=== PATIENT | male | born 1960 | race Caucasian/White ===

== ENCOUNTER 2021-01-30 10:47 | Emergency (ER) | payer OTHER, SELFPAY ==
--- NOTE | ~2021-01-30 | XR_ITS ---
EXAMINATION: XR shoulder LT min 2V DATE: 01/30/2021 12:11 INDICATION: Left shoulder pain post fall forward 2 weeks prior TECHNIQUE: AP internally and externally rotated, AP oblique externally rotated and transscapular Y vi ews of the left shoulder were obtained. COMPARISON: None FINDINGS: Alignment is normal. No acute fracture. There is lucency consistent with loosening surrounding the th reads of a lag screw at the anterior left glenoid. There is an ununited bone fragment near the head o f the screw which is separate by a few millimeter from the glenoid rim. Appearance suggests possible Latarjet procedure with harvest of the coracoid bone fragment for an old Bankhart lesion repair. Mild to moderate left glenohumeral osteoarthritis and mild acromioclavicular osteoarthritis. Small calcif ic focus near the middle facet of the greater tuberosity consistent with infraspinatus calcific tendi nitis. Subtle calcific debris versus labral chondrocalcinosis along the inferior rim of the glenoid. Visualized portions of the lungs are clear. IMPRESSION: 1. No acute osseous abnormality. 2. Postoperative changes at the anterior left glenoid suggesting a failed Latarjet procedure for an o ld Bankart lesion repair. 3. Mild to moderate glenohumeral and mild acromioclavicular osteoarthritis. 4. Infraspinatus calcific tendinitis. Reviewed, dictated and finalized at location B. OL CAFETERIA COOK HEAD IMPRESSION: 1. No acute osseous abnormality. 2. Postoperative changes at the anterior left glenoid suggesting a failed Latar jet procedure for an old Bankart lesion repair. 3. Mild to moderate glenohumeral and mild acromioclavicular osteoarthritis. 4. Infraspinatus calcific tendinitis.
--- NOTE | ~2021-01-30 | XR_ITS ---
EXAMINATION: XR shoulder RT min 2V DATE: 01/30/2021 12:14 INDICATION: Right shoulder pain. Injury. TECHNIQUE: 4 views of right shoulder were obtained. COMPARISON: None. FINDINGS: Bone alignment is normal. No fracture. There is mild osteoarthritis of glenohumeral joint a nd moderate osteoarthritis of acromioclavicular joint. IMPRESSION: 1. Polyarticular osteoarthritis. Reviewed, dictated and finalized at location A. ICE ENGINE REPAIRER
--- NOTE | ~2021-01-30 | XR_ITS ---
EXAMINATION: XR humerus RT DATE: 01/30/2021 12:14 INDICATION: Right shoulder injury and pain. TECHNIQUE: 2 views of right humerus on 3 radiographs were obtained. COMPARISON: None. FINDINGS: Bone alignment is normal. No fracture. There is mild osteoarthritis of glenohumeral joint a nd moderate osteoarthritis of acromioclavicular joint. There are enthesophytes at the medial and late ral humeral epicondyles. IMPRESSION: 1. Polyarticular osteoarthritis. Reviewed, dictated and finalized at location A. R SWEEPER OPERATOR
--- NOTE | ~2021-01-30 | XR_ITS ---
EXAMINATION: XR_CERV2-3V_CR DATE: 01/30/2021 12:15 INDICATION: Neck injury. TECHNIQUE: 5 views of cervical spine were obtained. COMPARISON: None. FINDINGS: Bone alignment is normal. Vertebral body heights are normal. There is mildly decreased disc height at C4-C5 and C5-C6 and moderately decreased disc height at C6-C7. At C6-C7, there is severe b ilateral uncovertebral joint osteoarthritis. There is multilevel mild facet joint osteoarthritis. The re is mild central canal stenosis at C6-C7. No prevertebral soft tissue swelling. IMPRESSION: 1. Moderate cervical spondylosis. Reviewed, dictated and finalized at location A. AL OPERATOR LINGUIST
--- NOTE | ~2021-01-30 | XR_ITS ---
EXAMINATION: XR wrist RT min 3V DATE: 01/30/2021 12:15 INDICATION: Right wrist pain. Fall. TECHNIQUE: 4 views of right wrist were obtained. COMPARISON: None. FINDINGS: Bone alignment is normal. No fracture. There is mild osteoarthritis of triscaphe joint and first carpometacarpal joint. IMPRESSION: 1. Mild polyarticular osteoarthritis. Reviewed, dictated and finalized at location A. OMER SOLUTIONS REPRESENTATIVE
[2021-01-30 10:56] VITALS: BP 129/68; PULSE 73; RESP 20; TEMP 36.3; O2SAT 100
--- NOTE | 2021-01-30 11:16 | ED.GENADULT ---
HPI - General Adult General Chief complaint: Fall Stated complaint: shoulders and neck injury Source: patient Mode of arrival: ambulatory Limitations: no limitations History of Present Illness HPI narrative: 61 y/o male. PMHx: Seizure Dx, TIA, HTN, HLD, Neuropathy, Chronic pain Sx. Presents to [facility] this AM with acute complaints of bilateral shoulder pain and posterior neck pain S/P a mechanical fall 2 weeks ago. Client notes a mechanical fall while walking his trashcan through his yard, 'tripped', and landed forward on upper extremities. He states he used his arms to catch himself. Client denies prodromal symptoms. No aura, focal weakness, dizziness, chest pain, dyspnea. He tells me he has not sought out medical evaluation until today, because he had 'been doing okay'. He is on daily Plavix for neurological history as aforementioned. No closed head injury or LOC. He reports no adverse bleeding or wounds. No loss of upper extremity control or paraesthesia. His pain has become more severe and with 'stiffness' since his injury. Client is without additional acute c/o illness upon PE. Related Data Home Medications Medication Instructions Recorded Confirmed amlodipine 5 mg PO DAILY 01/30/21 01/30/21 atorvastatin 40 mg PO DAILY 01/30/21 01/30/21 clopidogrel [Plavix] 75 mg PO DAILY 01/30/21 01/30/21 divalproex 500 mg PO Q12H 01/30/21 01/30/21 gabapentin 300 mg PO TID 01/30/21 01/30/21 hydrocodone-acetaminophen 1 tablet PO Q8H PRN 01/30/21 01/30/21 ibuprofen 800 mg PO TID PRN 01/30/21 01/30/21 losartan-hydrochlorothiazide 1 tablet PO DAILY 01/30/21 01/30/21 pantoprazole 40 mg PO QAM 01/30/21 01/30/21 venlafaxine 75 mg PO DAILY 01/30/21 01/30/21 Allergies Allergy/AdvReac Type Severity Reaction Status Date / Time codeine AdvReac Nausea Verified 01/30/21 11:17 Review of Systems Review of Systems: CONSTITUTIONAL: Denies fever, chills, sweats. EYES: Denies visual changes, redness, discharge. ENT: Denies rhinorrhea, congestion, sore throat, otalgia. CARDIOVASCULAR: Denies chest pain, palpitations, edema. RESPIRATORY: Denies dyspnea, wheezing, cough GASTROINTESTINAL: Denies abdominal pain, nausea, vomiting, diarrhea. GENITOURINARY: Denies dysuria, hematuria, abnormal discharge SKIN: Denies rash or itching. MUSCULOSKELETAL: Denies acute back pain. Positive Bilateral shoulder and cervical joint pain. No myalgia. NEUROLOGIC: Denies numbness, or focal weakness. PSYCHIATRIC: Denies anxiety or depression. All systems reviewed & are unremarkable except as noted in HPI and below Exam Narrative: GENERAL: This is a well-nourished, well-developed adult, in no apparent distress. HEAD: normocephalic, atraumatic. EYES: PERRL. Sclera clear/white. EARS: External ears normal, auditory canals clear and without drainage, TMs normal. NOSE: External nose normal. No Rhinorrhea, no obstruction, nares patent. THROAT: Mucous membranes moist, posterior pharynx clear. No exudates. NECK: Neck supple, non-tender without lymphadenopathy, masses or thyromegaly. No midline cervical spinal tenderness and full ROM of cervical spine. Reproducible bilateral trapezius muscle spasm. CARDIOVASCULAR: Regular rate and rhythm without murmurs, gallops, or rubs. Pulses intact, strong, BUE. RESPIRATORY: Clear to auscultation. Breath sounds equal bilaterally. No wheezes, rales, or rhonchi. No chest wall deficits. GASTROINTESTINAL: Abdomen soft, non-tender, nondistended. Bowel sounds are active. No guarding. SKIN: warm, intact with no suspicious lesions or rash, good texture and turgor. Mild residual and healing bruising to RT upper arm/humerus. No open wounds. NEURO: Alert, active, and age appropriate. No focal neurologic deficits. Good sensation and discrimination BUE. No deficits. EXTREMITIES: With Bilateral glenohumeral joint tenderness, no obvious deformity. RT shoulder ROM is limited secondary to pain, but good strength. LT shoulder exhibits full RO
== END 2021-01-30 12:40 | disposition home or self-care (01) ==
PROVIDERS: Emergency Provider Nurse Practitioner Adult Health; PCP Internal Medicine
DX: S49.91XA Unspecified injury of right shoulder and upper arm, initial encounter (principal); M54.2 Cervicalgia; I10 Essential (primary) hypertension; E78.5 Hyperlipidemia, unspecified; Z86.73 Personal history of transient ischemic attack (TIA), and cerebral infarction without residual deficits; Z79.891 Long term (current) use of opiate analgesic; Z79.1 Long term (current) use of non-steroidal anti-inflammatories (NSAID); Z79.02 Long term (current) use of antithrombotics/antiplatelets; W01.0XXA Fall on same level from slipping, tripping and stumbling without subsequent striking against object, initial encounter; Y92.007 Garden or yard of unspecified non-institutional (private) residence as the place of occurrence of the external cause
CPT/HCPCS: 72040; 73030; 73060; 73110; 99214; G0463

== ENCOUNTER 2021-12-03 13:10 | Emergency (ER) | payer OTHER, SELFPAY ==
--- NOTE | ~2021-12-03 | XR_ITS ---
XR foot RT min 3V 12/03/2021 13:49 Indication: Right foot pain and swelling Procedure: 4 views right foot Comparison: No prior studies for comparison. Findings: There is a radiopaque foreign body with a linear appearance in the plantar soft tissues ove rlying the fourth proximal phalanx. Mild osteoarthritis of the first MTP and IP joints. Lisfranc join t intact. No fracture or traumatic malalignment. Impression: 1: Linear radiopaque foreign body involving the plantar soft tissues overlying the fourth proximal ph alanx. Reviewed, dictated and finalized at location A. Impression: 1: Linear radiopaque foreign body involving the plantar soft tissues overlying the fourth proximal phalanx.
[2021-12-03 13:18] VITALS: BP 115/55; PULSE 52; RESP 14; TEMP 37.1; O2SAT 100
[2021-12-03 13:31] VITALS: BP 115/55; PULSE 52; RESP 14; TEMP 37.1; O2SAT 100
--- NOTE | 2021-12-03 13:57 | ED.SKABFB ---
HPI - Skin/Abscess/Foreign Bdy General Chief complaint: Skin/Abscess/Foreign Body Stated complaint: small black spot on bottom right foot Time Seen by Provider: 12/03/21 13:57 Source: patient, RN notes reviewed and old records reviewed Mode of arrival: ambulatory Limitations: no limitations History of Present Illness HPI narrative: 61-year-old male accompanied by with complaints of pain and right foot swelling with small black puncture wound to the bottom of his right foot which he noticed on . Patient reports on Saturday he was working in his pool and the next day he noticed pain swelling to right foot with swelling up to mid lower leg. Patient does have small black looking puncture wound to bottom of right foot on ball of foot, patient concerned of foreign body in foot does have neuropathy to his feet and legs. Patient reports that he has been keeping his feet elevated and swelling has decreased. Patient is on daily Plavix. MD complaint: foreign body (right foot.) Tetanus up to date: yes Severity scale (1-10): 4 Related Data Home Medications Medication Instructions Recorded Confirmed amlodipine 5 mg tablet 5 mg PO DAILY 01/30/21 12/03/21 atorvastatin 40 mg tablet 40 mg PO DAILY 01/30/21 12/03/21 clopidogrel 75 mg tablet (Plavix) 75 mg PO DAILY 01/30/21 12/03/21 divalproex 500 mg tablet,delayed 500 mg PO Q12H 01/30/21 12/03/21 release gabapentin 300 mg capsule 300 mg PO TID 01/30/21 12/03/21 hydrocodone 10 mg-acetaminophen 2 tablet PO Q8H PRN Pain 01/30/21 12/03/21 325 mg tablet losartan 100 1 tablet PO DAILY 01/30/21 12/03/21 mg-hydrochlorothiazide 25 mg tablet pantoprazole 40 mg tablet,delayed 40 mg PO QAM 01/30/21 12/03/21 release venlafaxine 75 mg tablet,extended 37.5 mg PO DAILY 01/30/21 12/03/21 release 24 hr Allergies Allergy/AdvReac Type Severity Reaction Status Date / Time codeine AdvReac Nausea Verified 12/03/21 13:28 Review of Systems Review of Systems: CONSTITUTIONAL: Denies fever, chills, or sweats. EYES: Denies visual changes, redness, or discharge. ENT: Denies rhinorrhea, congestion, sore throat, or otalgia. CARDIOVASCULAR: Denies chest pain, palpitations, or edema. RESPIRATORY: Denies cough or dyspnea. GASTROINTESTINAL: Denies abdominal pain, nausea, vomiting, or diarrhea. GENITOURINARY: Denies dysuria or hematuria. SKIN: Denies rash or itching.small black puncture suzanne to bottom of right foot ball of foot MUSCULOSKELETAL: Denies back pain, chronic leg pain or myalgia, swelling and pain to right foot. NEUROLOGIC: Denies headache, numbness, or weakness. PSYCHIATRIC: Positive history anxiety or depression. All systems reviewed & are unremarkable except as noted in HPI and below PMFSH Past Medical History Medical History (Updated 12/06/21 @ 08:15 by Mary Jane Ly NP) Chronic leg pain Elevated cholesterol Hx of migraines Hypertension Neuropathy Surgical History Surgical History (Updated 12/07/21 @ 07:17 by Mary Jane Ly NP) H/O inguinal hernia repair left H/O repair of rotator cuff bilateral History of facial surgery reconstruction of bilateral orbits and cheeks Social History Social History (Updated 12/07/21 @ 07:14 by Mary Jane Ly NP) Smoking status: Never smoker Alcohol intake: unknown Substance use: current Substance use type: opiates Last use: takes opiates daily for pain control Living arrangements: with family Gender identity (if verbalized by the patient): Male Comments At time of signature agree with nursing documentation of past medical,surgical,social and family history. There is no relevant family history pertinent to presenting complaint. Exam Narrative: GENERAL: Well-appearing, well-nourished, and in no acute distress. HEAD: Normocephalic, atraumatic. NECK: Supple.no lymphadenopathy CHEST: Clear to auscultation. No respiratory distress.SAO2 100% on room air HEART: Regular rate and rhythm. No murmur heard. Kamala
== END 2021-12-03 14:32 | disposition home or self-care (01) ==
PROVIDERS: Emergency Provider Registered Nurse
DX: S90.851A Superficial foreign body, right foot, initial encounter (principal); X58.XXXA Exposure to other specified factors, initial encounter; E78.00 Pure hypercholesterolemia, unspecified; I10 Essential (primary) hypertension; G62.9 Polyneuropathy, unspecified; Z79.01 Long term (current) use of anticoagulants
CPT/HCPCS: 73630; 99213; G0463

== ENCOUNTER 2024-11-09 13:12 | Emergency (ER) | payer MEDICARE, SELFPAY ==
--- OUTSIDE RECORDS SUMMARY | 2023-11-27 06:00 | XMS_ITS | Continuity of Care Document ---
Author Organization [facility] Address [address] [facility] [address] [place] [address] [place] [id number] Phone Care Team Providers Care Twisting Operator Name Role Phone Rhoda Stockton OD Unavailable Unavailable Allergies, Adverse Reactions, Alerts Substance Reaction Status Criticality codeine Active No Information Medications Medication Instructions Dosage Effective Dates (start - stop) Status Comments prednisolone acetate 1 % eye drops,suspension Instill 1 drop into operated eye 4 times a day for 2 weeks, then 2 times a day for 2 weeks; to begin after being seen in the office for first post op visit. - Active clopidogrel 75 mg tablet take 1 tablet by oral route every day 75 MG - Active losartan 25 mg tablet take 1 tablet by oral route every day 25 MG - Active venlafaxine 37.5 mg tablet take 1 tablet by oral route every day with food 37.5 MG - Active Kapspargo Sprinkle 100 mg capsule,extended release take 1 capsule by oral route every day 100 MG - Active atorvastatin 40 mg tablet take 1 tablet by oral route every day 40 MG - Active amlodipine 5 mg tablet take 1 tablet by oral route every day 5 MG - Active gabapentin ER 300 mg tablet,extended release 24 hr take 1 tablet by oral route once on day 1 of treatment 300 MG - Active pantoprazole 40 mg tablet,delayed release take 1 tablet by oral route every 2 days 40 MG - Active Allergy and Congestion Relief 5 mg-120 mg tablet,extend release 12 hr take 1 tablet by oral route every 12 hours 1.00 tablet - Active Magnesium Fizz-Plus 500 mg-300 mg/6.1 gram oral effervescent powder - Active Daily Multi-Vitamin tablet take 1 tablet by oral route every day 1 tablet - Active Procedures Procedure Date No Charge Refraction Post-op Follow-up Visit Post-op Follow-up Visit Remove Cataract, Insert Lens No Charge Refraction Post-op Follow-up Visit Post-op Follow-up Visit Remove Cataract, Insert Lens Fundus Photography W/ Report IOLMaster No Charge Refraction Corneal Topography No Charge GDX Retina Office/outpatient Visit, Est IOLMaster No Charge Optomap Fundus Photos 024 No Charge Refraction Eye Exam, New Patient Advance Directives Directive Yes / No Effective Date File Name No Information Encounters Encounter Description Practice Location Reason(s) For Visit Diagnoses Date Provider Providers Copied on Encounter [facility], [facility] [address], [place], [id number], tel:[phone] SEC Doe GARCIA Professional Post-Op (chief complaint) Post op visit Nov-0 4 Mahin Duong. [address] [place] [address] [facility], [address], [place], [place], [address], [place]. tel:[phone] Referring Provider: Rhoda Mccollum, [facility] [employer] [facility] [address], [place], [address] . tel:[phone] [facility], [facility] [employer] [facility] [address], [place], [place], [address], tel:[phone] SEC Doe GARCIA Professional 1 Day CE/IOL PO (chief complaint) Post op visit Oct- 4 Mahin Duong. [facility] [employer], [address], [place], [place], [address], . tel:[phone] Referring Provider: Rhoda Mccollum, [facility] [employer] [address], [place], [address] . tel:[phone] [facility], [address] [place] [address] [address], [place], [place], [address], [place] tel:[phone] [facility] No Information 4 Viji Velazquez. [address] [place] [address] [employer], [address], [place], [place], [address], [place]. tel:[phone] Referring Provider: Rhoda Stockton OD L, [address] [place] [address] [facility] [address], [place], [address] . tel:[phone] [facility], [address] [place] [address] [address], [place], [place], [id number], tel:[phone] SEC Doe [place] Professional Post-Op (chief complaint) Post op visit 4 Mahin Dunog. [address] [place] [address] [employer], [address], [place], [place], [address], [place]. tel:[phone] Referring Provider: Rhoda Stockton OD L, [address] [place] [address] [facility] [address], [place], [address] . tel:[phone] [facility], [address], [place], [place], [id number], [place] tel:[phone] SEC [place] Professional 1 Day CE/IOL PO (chief complaint) Post op visit 4 Mahin Duong. [address] [place] [address] [employer], [address], [place], [place], [address], [place]. tel:[phone] Referring Provider: Rhoda Stockton OD L, [address] [place] [address] [facility] [address], [place], [address] . tel:[phone] [facility], [address] [place] [address] [address], [place], [place], [address], [place] tel:[phone] [facility] No Information 4 Viji Velazquez. [facility] [employer], [address], [place], [place], [address], [place]. tel:[phone] Referring Provider: Rhoda Stockton OD L, [facility] [employer] [address], [place], [address] . tel:[phone] [facility], [address] [place], [place] [address] [address], [place], [place], [address], [place] tel:[phone] SEC [place] No Information 4 Viji Velazquez. [facility] [employer], [address], [place], [place], [address], [place]. tel:[phone] Office/outpa [place]ient Visit, [facility], [facility] [employer] [address], [place], [place], [address], [place] tel:[phone] SEC [place] Professional Cataract evaluation (chief complaint) Combined forms of age-related cataract, bilateralGlau coma suspect low risk, bilateral 4 Viji Velazquez. [facility] [employer], [address], [place], [place], [address], [place]. tel:[phone] Referring Provider: Rhoda Stockton OD L, [facility] [employer] [address], [place], [address] . tel:[phone] [facility], [facility] [address], [place], [place], [address], [place] tel:[phone] SEC [place] Professional Blurry/decr eased vision (chief complaint) Combined forms of age-related cataract, bilateralGlau coma suspect low risk, bilateral Apr- 4 Mahin Duong. [facility] [employer], [address], [place], [place], [address], [place]. tel:[phone] Referring Provider: Rhoda Stockton OD L, [facility] [employer] [address], [place], [address] . tel:[phone] [facility], [address], [place], [place], [address], [place] tel:[phone] SEC Neymar [place] No Information Mahin OD Rhoda. [address], [address], [place], [place], [address], [place]. tel:[phone] Family History Family Member Type Diagnosis Age At Onset Problem Family history of Diabetes m amadeo Payers Payer name Insurance type Covered libertarian ID Authoriza tion(s) No Information Social History Type Description Quantity Date Captured Comments Alcohol Use Details No Caffeine Use Details Tobacco Use Status Current non-smoker Smoking Status Never smoker Non-Smoking Tobacco Use Details : No Details Available : No Details Available Sex Male Chief Complaint And Reason For Visit From encounter dated '11/27/2023 11:00'. Post-Op (chief complaint). Description: The 63 year old patient presents for evaluation of 2 week CE/IOL STD Post-Op in the right eye. Pt reports good compliance with PO gtts. Pt states vision is doing great. Pt states he has not been having any issues. Reason For Referral Reason For Referral No Information Plan Of Treatment Date Type Action Status Patient Education Cataracts: Care Instruc tions completed History Of Present Illness Encounter Date Complaint History Of Prese nt Illness Post-Op The 63 year old patient presents for evaluation of 2 week CE/IOL STD Post-Op in the right eye. Pt reports good compliance with PO gtts. Pt states vision is doing great. Pt states he has not been having any issues. 1 Day CE/IOL PO The 63 year old patient presents for evaluation of 1 Day CE/IOL PO in the right eye. Pt states no pain or discomfort in OD and pt states that vision seems a little better and definitely seems brighter than before. Post-Op The 63 year old patient presents for a 2 week post op CE OS. Patient is using his drop as directed. Patient states OS is doing good. Patient wishes to proceed with CE OD. Patient is bothered by glare around lights at night. Patient has a hard time reading fine print and a hard time watching TV. 1 Day CE/IOL PO The 63 year old patient presents for evaluation of 1 Day CE/IOL PO in the left eye. Pt states no pain or discomfort in OS and pt states that vision in OS is still blurry but does seem brighter than before. Cataract evaluation The 63 year old patient presents for evaluation of Cataract evaluation in the right eye and left eye. Pt referred by Dr. Stockton for cataracts ou. Pt states for past 2 years his vision has become more cloudy. Pt. states he has trouble reading small print, seeing print on tv. Pt. also has trouble with glare at nighttime. Blurry/decreased vision The 63 y ear old patient presents for evaluation of Blurry/decreased vision in the right eye and left eye. Pt states that over that past year they noticed that OU has seem to be getting worse vision for DV and NV pt states that vision seems to be cloudy. Functional Status Date Functional Assessmen t No Information Instructions Date Instruction Additional Infor junior Impression/Plan Impression/Plan Impression/Plan Impression/Plan Impression/Plan Impression/Plan Assessments Type Assessment Date assessment Post op visit Patient Care Teams Name Effective Dates (start - stop) Status Members No Information
--- OUTSIDE RECORDS SUMMARY | 2023-11-27 06:00 | XMS_ITS | Continuity of Care Document ---
Author Organization [employer] [facility] [place] Address [address] [facility] utigavin [place] [address] [place] [address] Phone Care Team Providers Care Nuclear Plant Technical Advisor Name Role Phone Rhoda Stockton OD Unavailable [...] Diagnoses Date Provider Providers Copied on Encounter [facility] [employer] [facility], [facility] [place] [facility] [address], [place], [address], tel:[phone] SEC Doe GARCIA Professional Post-Op (chief complaint) Post op visit Nov-0 4 Mahin Duong. [address] [place] [address] [employer] [facility], [address], [place], [place], [address], [place]. tel:[phone] Referring Provider: Rhoda Mccollum, [facility] [employer] [facility] [address], [place], [address] . tel:[phone] [facility] [employer] [facility], [facility] [employer] [facility] [address], [place], [place], [address], tel:[phone] SEC Doe GARCIA Professional 1 Day CE/IOL PO (chief complaint) Post op visit Oct- 4 Mahin Duong. [facility] [employer], [address], [place], [place], [address], . tel:[phone] Referring Provider: Rhoda Mccollum, [facility] [employer] [address], [place], [address] . tel:[phone] [facility] [place], [address] [place] [address] [address], [place], [place], [address], [place] tel:[phone] [facility] No Information 4 Viji Velazquez. [address] [place] [address] [employer], [address], [place], [place], [address], [place]. tel:[phone] Referring Provider: Rhoda Stockton OD L, [address] [place] [address] [employer] [facility] [address], [place], [address] . tel:[phone] [facility], [address] [place] [address] [address], [place], [place], [address], tel:[phone] SEC Doe [place] Professional Post-Op (chief complaint) Post op visit 4 Mahin Duong. [address] [place] [address] [employer], [address], [place], [place], [address], [place]. tel:[phone] Referring Provider: Rhoda Stockton OD L, [address] [place] [address] [employer] [facility] [address], [place], [address] . tel:[phone] [facility], [address], [place], [place], [address], [place] tel:[phone] SEC [place] Professional 1 Day CE/IOL PO (chief complaint) Post op visit 4 Mahin Duong. [address] [place] [address] [employer], [address], [place], [place], [address], [place]. tel:[phone] Referring Provider: Rhoda Stockton OD L, [address] [place] [address] [employer] [facility] [address], [place], [address] . tel:[phone] [facility] [place], [address] [place] [address] [address], [place], [place], [address], [place] tel:[phone] [facility] No Information 4 Viji Velazquez. [facility] [employer], [address], [place], [place], [address], [place]. tel:[phone] Referring Provider: Rhoda Stockton OD L, [facility] [employer] [address], [place], [address] . tel:[phone] [facility], [address] [place], [place] [address] [address], [place], [place], [address], [place] tel:[phone] SEC [place] No Information 4 Viji Velazquez. [facility] [employer], [address], [place], [place], [address], [place]. tel:[phone] Office/outpa tient Visit, [facility], [facility] [employer] [address], [place], [place], [address], [place] tel:[phone] SEC [place] Professional Cataract evaluation (chief complaint) Combined forms of age-related cataract, bilateralGlau coma suspect low risk, bilateral 4 Viji Velazquez. [facility] [employer], [address], [place], [place], [address], [place]. tel:[phone] Referring Provider: Rhoda Stockton OD L, [facility] [employer] [address], [place], [address] . tel:[phone] [facility], [facility] [employer] [facility] [address], [place], [place], [address], [place] tel:[phone] SEC Doe [place] Professional Blurry/decr eased vision (chief complaint) Combined forms of age-related cataract, bilateralGlau coma suspect low risk, bilateral Apr- 4 Mahin Duong. [facility] [employer], [address], [place], [place], [address], [place]. tel:[phone] Referring Provider: Rhoda Stockton OD L, [facility] [employer] [address], [place], [address] . tel:[phone] [facility], [address] [address], [place], [place], [address], [place] tel:[phone] SEC Neymra [place] No Information Mahin OD Rhoda. [address], [address], [place], [place], [address], [place]. tel:[phone] Family History Family Member Type Diagnosis Age At Onset Problem Family history of Diabetes m amadeo Payers Payer name Insurance type Covered democrat ID Authoriza tion(s) No Information Social History [...]
--- NOTE | ~2024-11-09 | XR_ITS ---
EXAMINATION: XR foot RT min 3V, 11/09/2024 13:20 CDT HISTORY: pain COMPARISON: No comparisons available. Findings: No acute fracture or malalignment. No significant degenerative changes. Soft tissues unremarkable. Impression: No acute fracture or malalignment. Reviewed, dictated and finalized at location A. Impression: No acute fracture or malalignment.
[2024-11-09 13:27] VITALS: BP 125/75; PULSE 84; RESP 16; TEMP 36.6; O2SAT 98
--- NOTE | 2024-11-09 13:38 | ED.LOWEXIN ---
HPI - Extremity Injury (Lower) General Chief Complaint: Extremity Injury, Lower Stated Complaint: right foot injury Source: patient Mode of arrival: ambulatory Limitations: no limitations History of Present Illness HPI Narrative: 64 y/o male presented for c/o right foot pain after injury 2 days ago. Says he walked into a baby gate door. Now has bruising and swelling to the top of the foot. Says he cannot tolerate walking on it for the 2 days. Related Data Home Medications ?Medication ?Instructions ?Recorded ?Confirmed ?Last Taken ?Type amlodipine 5 mg tablet 5 mg PO DAILY 01/30/21 05/24/23 Unknown History atorvastatin 40 mg tablet 40 mg PO DAILY 01/30/21 05/24/23 Unknown History gabapentin 300 mg capsule 900 mg PO TID 01/30/21 05/24/23 Unknown History losartan 100 1 tablet PO DAILY 01/30/21 05/24/23 Unknown History mg-hydrochlorothiazide 25 mg tablet pantoprazole 40 mg tablet,delayed 40 mg PO DAILY 01/30/21 05/24/23 Unknown History release acetaminophen 325 mg tablet 975 mg PO Q6H PRN Pain 05/24/23 05/24/23 Unknown History cholecalciferol (vitamin D3) 25 2,000 unit PO DAILY 05/24/23 05/24/23 Unknown History mcg (1,000 unit) tablet cyclobenzaprine 10 mg tablet 10 mg PO TID 05/24/23 05/24/23 Unknown History metoprolol succinate 100 mg 100 mg PO DAILY 05/24/23 05/24/23 Unknown History tablet,extended release 24 hr sennosides 8.6 mg-docusate sodium 1 tablet PO DAILY 05/24/23 05/24/23 Unknown History 50 mg tablet venlafaxine 37.5 mg 37.5 mg PO DAILY 05/24/23 05/24/23 Unknown History tablet,extended release 24 hr Allergies Allergy/AdvReac Type Severity Reaction Status Date / Time codeine AdvReac Nausea Verified 12/03/21 13:28 Review of Systems Review of Systems: CONSTITUTIONAL: Denies body aches, fever, chills EYES: Denies visual changes ENT: Denies rhinorrhea, congestion CARDIOVASCULAR: Denies chest pain, palpitations, or edema. RESPIRATORY: Denies cough or dyspnea. SKIN: Denies rash, itching, or wounds. MUSCULOSKELETAL: reports right foot pain NEUROLOGIC: Denies headache All systems reviewed & are unremarkable except as noted in HPI and below PMFSH Past Medical History Medical History Cervical disc disorder with myelopathy, cervicothoracic region signal change C67 surgery due to cervical stenosis with myelopathy with disc disorder AND hematoma Chronic leg pain Elevated cholesterol History of CVA (cerebrovascular accident) without residual deficits 2017 presented with left ataxia weakness slurred speech MOPAP sp tPA given DAPt noncompliant with plavix follow up Dr. Morse 12/2017 Hx of migraines used depakote, dc due to thrombocytopenia Hypertension Lumbar spinal stenosis Neuropathy per neurology sensorimotor Nontraumatic epidural hematoma noted at time of surgery Sensory motor neuropathy [address] 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 Thrombocytopenia noted previously requiring transfusions Surgical History Surgical History H/O inguinal hernia repair left H/O repair of rotator cuff bilateral History of facial surgery reconstruction of bilateral orbits and cheeks History of reverse total replacement of right shoulder joint Hx of excision of lamina of cervical vertebra for decompression of spinal cord R C6-T1 hemilaminotomy/laminectomy for central decompression bilateral laminectomy C4/5 with hematoma evacuation Social History Social History Smoking status: Unknown if ever smoked Alcohol intake: former Substance use: current Substance use type: marijuana Last use: takes opiates daily for pain control Do You Feel Safe in your Home?: Yes Lack of Transportation: No Lack of Food: Never True Current Housing: I Have Housing Concerned About Future Housing: No Difficulty Paying Gas/Electric Bills: No Difficulty Paying for Meds: No Currently Unemployed: No Education: Grade School Difficulty w/ Childcare or Family Care: No Living arrangements: with family Gender identity (if verbalized by the patient): Male Spiritual care concerns: Yes (non denominatinal) Comments At time of signature, I have reviewed and agree with nursing past medical, surgical, social and family history unless otherwise noted. Please see nursing chart for further information. There is no relevant family history pertinent to the presenting complaint Exam Narrative: GENERAL: Well-appearing CHEST: Speaks in full sentences. No respiratory distress. HEART: Regular rate and rhythm. Normal and equal peripheral pulses. EXTREMITIES: Right dorsal foot with bruising and superficial abrasion noted. CMS intact. endorses pain with movement. pulse palpable and equal bilaterally, skin warm, dry, pink. Capillary refill less than 3 seconds. SKIN: Warm, dry, no rash. NEURO: Alert and oriented x3. PSYCH: Normal mood and affect Course Course Emergency Course: Patient is aware of diagnosis, understands and agrees to treatment plan. Anticipatory guidance given. Patient agrees to follow-up as directed and is aware of reasons to seek care at the emergency department. Portions of this record may have been created with voice recognition software Level of Care: Express Care Visit Vital Signs Vital signs: Vital Signs Temperature 97.9 F 11/09/24 13:27 Pulse Rate 84 11/09/24 13:27 Respiratory Rate 16 11/09/24 13:27 Blood Pressure 125/75 11/09/24 13:27 Pulse Oximetry 98 11/09/24 13:27 Oxygen Delivery Room Air 11/09/24 13:27 Temperature 97.9 F 11/09/24 13:27 Pulse Rate 84 11/09/24 13:27 Respiratory Rate 16 11/09/24 13:27 Blood Pressure 125/75 11/09/24 13:27 Pulse Oximetry 98 11/09/24 13:27 Oxygen Delivery Room Air 11/09/24 13:27 Reviewed MDM - Extremity Injury (Lower) MDM Narrative Medical decision making narrative: Discussed physical exam findings And x-ray. Consistent with right foot contusion with superficial abrasion, luciano wrap applied. Advised supportive measures and signs/symptoms to go to the ER. Pt is appropriate for outpt treatment and f/u. Differential Diagnosis Differential diagnosis: Likely ankle sprain and strain and other (foot fracture, contusion, sprain, abrasion) Imaging Data Radiologist's impression: Patient: Abimael Stringer : 1960 MR#: [id number] Age: 64 Acct:[id number] Loc: [facility] ADM Date: 11/09/24Attending Dr: EXAMINATION: XR foot RT min 3V, 11/09/2024 13:20 CDT HISTORY: pain COMPARISON: No comparisons available. Findings: No acute fracture or malalignment. No significant degenerative changes. Soft tissues unremarkable. Impression: No acute fracture or malalignment. Discharge Plan Discharge Clinical Impression: Contusion of foot Patient Disposition: Home Condition: Stable Instructions: Antibiotic Form, Contusion in Adults (ED) Additional Instructions: Rest and elevate the right leg; bear weight as tolerated Apply ice 15-20 minute intervals several times a day Keep it wrapped with LUCIANO as needed Motrin 600mg alternate with Tylenol 1000mg every 8 hours as needed Follow up with your primary care provider Go to the ER for worsening symptoms or concerns Patient Language: Nigerian Prescriptions: No Action atorvastatin 40 mg Tablet 40 mg PO DAILY amlodipine 5 mg Tablet 5 mg PO DAILY losartan-hydrochlorothiazide 100-25 mg Tablet 1 tablet PO DAILY Rx Instructions: HELD IN HOSPITAL DUE TO NORMOTENSIVE BPS pantoprazole 40 mg Tablet,Delayed Release (Dr/Ec) 40 mg PO DAILY gabapentin 300 mg Capsule 900 mg PO TID cyclobenzaprine 10 mg Tablet 10 mg PO TID acetaminophen 325 mg Tablet 975 mg PO Q6H PRN (Reason: Pain) cholecalciferol (vitamin D3) 25 mcg (1,000 unit) Tablet 2,000 unit PO DAILY sennosides-docusate sodium 8.6-50 mg Tablet 1 tablet PO DAILY metoprolol succinate 100 mg Tablet Extended Release 24 Hr 100 mg PO DAILY Rx Instructions: HELD IN HOSPITAL DUE TO NORMOTENSIVE BPS. MAY RESTART AT REHABPER PROVIDER'S DISCRETION venlafaxine 37.5 mg Tablet Extended Release 24hr 37.5 mg PO DAILY lidocaine [Lidocaine Pain Relief] 4 % Adhesive Patch,Medicated 1 patch transdermal DAILY 30 Days Qty: 10 0RF polyethylene glycol 3350 [Miralax] 17 gram Powder In Packet 17 g PO BID 30 Days Qty: 30 0RF melatonin 3 mg Tablet 6 mg PO HS 30 Days Qty: 60 0RF oxycodone 5 mg Tablet 5 mg PO Q8H PRN (Reason: Pain Rated 7-10) Qty: 21 0RF Follow-up/Referrals: Harms,Gabe Raya M.D. [Primary Care Provider]
--- OUTSIDE RECORDS SUMMARY | 2024-11-09 15:43 | XMS_ITS | Clinical Summary ---
Author Organization [facility] [facility] Address [address] 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
--- OUTSIDE RECORDS SUMMARY | 2024-11-09 15:43 | XMS_ITS | Clinical Summary ---
Author Organization [facility] Address [address] [place] [address] Phone Care Team Providers Care Igniter Capper Name Role Phone Bryon Real MD Primary Care Provider [phone] Allergies Active Allergy Reactions Criticality Noted Date Comments Codeine Nausea 02/24/2018 Medications metoprolol Succinate (TOPROL-XL) 100 MG TABLET SR 24 HR Take 100 mg by mouth daily. Active sertraline (ZOLOFT) 100 MG Tablet Take 100 mg by mouth daily. Active divalproex (DEPAKOTE) 125 MG Tablet Delayed Response Take 125 mg by mouth 3 times daily. Active losartan potassium-hydro chlorothiazide (HYZAAR) 100-25 MG Tablet Take 1 Tab by mouth daily. Active atorvastatin (LIPITOR) 80 MG Tablet Take 80 mg by mouth daily. Active HYDROcodone-jessica taminophen (NORCO) 5-325 MG Tablet Take 1 Tab by mouth every 4 hours as needed. Active gabapentin (NEURONTIN) 300 MG Capsule Take 300 mg by mouth 3 times daily. Active amLODIPine (NORVASC) 10 MG Tablet Take 10 mg by mouth daily. Active Clopidogrel Bisulfate (PLAVIX PO) Take by mouth. Act earl pantoprazole (PROTONIX) 40 MG Pack 40 mg by Per NG tube route daily. Active ibuprofen (MOTRIN) 800 MG Tablet Take 800 mg by mouth every 8 hours. Active promethazine-de xtromethorphan (PROMETHAZINE-D M) 6.25-15 MG/5ML Syrup Take 5 mL by mouth every 4 hours as needed for Cough. 240 mL 8 Active Erenumab-aooe (AIMOVIG) 70 MG/ML Solution Auto-injector 140 mg by Subcutaneous route. 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 Gender Identity Not on file Sexual Orientation Not on file Last Filed Vital Signs Vital Sign Reading Time Taken Comments Blood Pressure 140/63 07/28/2018 4:37 PM CDT Pulse 88 07/28/2018 4:37 PM CDT Temperature 36.8 C (98.3 F) 07/28/2018 4:37 PM CDT Respiratory Rate 16 07/28/2018 4:37 PM CDT Oxygen Saturation 96% 07/28/2018 4:37 PM CDT Inhaled Oxygen Concentration - - Weight 117.9 kg (260 lb) 07/28/2018 4:37 PM CDT Height 175.3 cm (5' 9) 07/28/2018 4:37 PM CDT Body Mass Index 38.4 07/28/2018 4:37 PM CDT Plan of Treatment Health Maintenance Due Date Last Done Comments Hepatitis C Virus (HCV) Screening 1960 Cologuard 2003 Colonoscopy 2003 Colorectal Cancer Screening 2003 Immunochemical Fecal Occult Blood 2003 Pneumococcal Immunization (50+ years) (1 of 1 - PCV) 01/02/2008 Influenza Immunization (#1) 10/26/202411/26, 11/23/2019, 12/08/2018, Additional history exists SARS-COV-2 Immunization ( season) 2024 01/27/2021, 04/30/2020 Respiratory Syncytial Virus (RSV) Immunization (Adult) (1 - 1-dose 75+ series) 2033 DTaP/Tdap/Td Immunization Discontinued 04/17/2010 TdaP Immunization Completed 04/17/2010 Zoster Immunization Completed 09/02/2019, 06/16/2019, 11/16/2015 Hepatitis B Immunization Aged Out No longer eligible based on patient's age to complete this topic Human Papillomavirus (HPV) Immunization Aged Out No longer eligible based on patient's age to complete this topic Meningococcal Immunization (ACWY) Aged Out No longer eligible based on patient's age to complete this topic Rotavirus Immunization Aged Out No lo nger eligible based on patient's age to complete this topic Insurance [facility] Care Teams Igniter Capper Relationship Specialty Start Date End Date Bryon Real MD [address] [place] [address] PCP - General Internal Medicine 02/24/18
--- OUTSIDE RECORDS SUMMARY | 2024-11-09 15:43 | XMS_ITS | Encounter Summary ---
Author Organization [employer] Address 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
--- OUTSIDE RECORDS SUMMARY | 2024-11-09 15:43 | XMS_ITS | Encounter Summary ---
Author Organization [facility] [employer] [facility] Address [address] [place] [address] Phone Care Team Providers Care Local Sales Manager Name Role Phone Bryon Real MD Primary Care Provider [phone] Venus Briones Unavailable [phone] Oanh Abrams MD Primary Care Provide r Jessica Marx MA Unavailable Igor Giles NP Unavailable [phone] Krysta Perry RN Unavailable [phone] Gabe Brock MD Primary Care Provider [phone] Johana Aj RN Unavailable Encounter Details Date Type Department Care Team (Late st Contact Info) Description 06/08/2017 Orders Only [facility] Provider[place]onya [place] [address] Social History Tobacco Use Types Packs/Day Years Used Date Smoking Tobacco: Never Smokeless Tobacco: Never Alcohol Use Standard Drinks/Week Comments No 0 (1 standard drink = 0.6 oz pur e alcohol) Sex and Gender Information Value Date Recorded Sex Assigned at Not on file Legal Sex Male 11:53 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 us Historical Provider LAB BLOOD ORDERABLES Muna l Result documented in this encounter Visit Diagnoses Not on filedocumented in this encounter Additional Health Concerns Infection Onset Date Last Indicated Resolved Time COVID: Suspected 07/01/2019 07/01/2019 07/03/2019 6:59 AM CDT Respiratory Infection (BLANCHE), contact + droplet Comment:Automatically added due to negative COVID-19 result. 07/03/2019 07/03/2019 07/17/2019 3:0 5 AM CDT COVID: Suspected 02/19/2021 02/19/2021 02/19/2021 6:29 PM POLICE ACADEMY PROGRAM COORDINATOR COVID: Suspected 02/19/2021 02/19/2021 02/20/2021 5:09 PM POLICE ACADEMY PROGRAM COORDINATOR COVID: Suspected 05/19/2023 05/19/2023 05/19/2023 12:36 PM CDT COVID: Suspected 01/11/2024 01/11/2024 01/11/2024 4:10 PM POLICE ACADEMY PROGRAM COORDINATOR documented as of this encounter Care Teams Local Sales Manager Relationship Specialty Start Date End Date Bryon Real MD PCP - General 05/25/16 08/06/21 Oanh Abrams MD [address] [place] [address] [place] [address] PCP - General Family Medicine 08/07/21 07/23/23 Gabe Brock MD [address] [place] [address] PCP - General Family Medicine 07/24/23 Venus Briones [address] [place] [address] [address] [place] [address] ACO Care Forming Acid Dumper 07/02/19 07/02/19 Jessica Marx MA [address] [place] [address] [address] [place] [address] ACO Care Forming Acid Dumper 12/05/21 12/06/21 Igor Giles NP [address] [place] [address] [address], [place] [address] Nurse Practitioner Nurse Practitioner 04/10/22 Krysta Perry RN [address] [place] [address] [address] [place] [address] Screen Making Technician 06/04/23 07/31/23 Johana Aj, ISAIAS [address] [place] [address] [address] [place] [address] Screen Making Technician 12/23/23 12/31/23 documented as of this encounter
--- OUTSIDE RECORDS SUMMARY | 2024-11-09 15:43 | XMS_ITS | Encounter Summary ---
Author Organization [facility] ??? Address [address] [place] [address] Care Team Providers Care Curriculum And Assessment Director Name Role Phone Unavailable Primary Care Provider Unavailabl e Encounter Details Date Type Department Care Team (Late st Contact Info) Description 08/04/2002 Outpatient Historical [facility] Social History Tobacco Use Types Packs/Day Years Used Date Smoking Tobacco: Never Assessed Sex and Gender Information Value Date Recorded Sex Assigned at Not on file Legal Sex Male 5:26 AM [employer] Gender Identity Not on file Sexual Orientation Not on file documented as of this encounter Plan of Treatment Not on file documented as of this encounter Visit Diagnoses Not on filedocumented in this encounter
--- OUTSIDE RECORDS SUMMARY | 2024-11-09 15:43 | XMS_ITS | Clinical Summary ---
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 lived? 1 06/20/2023 In the last 12 months, was t here a time when you did not have a steady place to sleep or slept in a penitentiary (including now)? No 06/20/2023 PHQ-9 Answer Date Recorded PHQ-9 Total Score 2 07/24/2023 Housing Stability Vital Sign Answer Jamshid e Recorded In the last 12 months, was t here a time when you were not able to pay the mortgage or rent on time? No 07/24/2023 In the past 12 months, how m any times have you moved where you were living? 1 07/24/2023 At any time in the past 12 m [facility], were you homeless or living in a penitentiary (including now)? No 07/24/2023 Personal Safety Answer Date Recorded Have you ever been in or are you currently in a harmful physical or emotional relationship or is someone making you feel afraid or unsafe? Denies 11/29/2023 Sex and Gender Information Value Date Recorded Sex Assigned at Not on file Legal Sex Male 11:53 PM [employer] Gender Identity Male 09/03/2023 4:40 PM CDT Sexual Orientation Straight 11/18/2019 10 :29 PM CDT Obstetrics History Last Filed Vital Signs Vital Sign Reading Time Taken Comments Blood Pressure 142/84 06/09/2024 12:56 PM CDT Pulse 72 06/09/2024 12:56 PM CDT Temperature 36.8 C (98.2 F) 06/09/2024 12:56 PM CDT Respiratory Rate 18 06/09/2024 12:56 PM CDT Oxygen Saturation 96% 06/09/2024 12:56 PM CDT room air Inhaled Oxygen Concentration - - Weight 78 kg (172 lb) 11/03/2024 9:59 AM CDT Height 172.7 cm (5' 8) 11/03/2024 9:59 AM CDT Body Mass Index 26.15 11/03/2024 9:59 AM CDT Plan of Treatment Health Maintenance Due Date Last Done Comments Hepatitis B Screening 01[birth year]02/1978 Well Visit 65+ 03/07/2024 03/07/2023, 02/25, 02/07/2021, Additional history exists Covid-19 Vaccine (2024-03 6 season) 2024 02/03/2023, 01/28/2022, 01/27/2021, Additional history exists Influenza Vaccine (#1) 2024 , 02/03/2023, 12/12/2021, Additional history exists Depression Screening 06/09/2025 06/09/2024, 07/24/2023, 07/24/2023, Additional history exists Fall Risk Assessment 06/09/2025 06/09/2024, 12/26/2023, 12/20/2023, Additional history exists Prostate Cancer Screening-PSA 06/09/2025, 03/20/2022, 01/12/2021, Additional history exists Colon Cancer Screening-Colonoscopy 02/03/2029 02/03/2019, 12/16/2002 DTaP/Tdap/Td Vaccine (3 - Td or Tdap) 12/13/2031 12/12/2021, 04/17/2010 Colon Cancer Screening-CT Colonography Discontinued 02/03/2019, 12/16/2002 Colon Cancer Screening-DNA Stool Discontinued 02/04/20 19, 12/16/2002 Colon Cancer Screening-FIT Discontinued 02/03/2019, Colon Cancer Screening-Sigmoidoscopy Discontinued 02/03/2019, 12/16/2002 Zoster Vaccine Completed 09/02/2019, 05/27, 11/16/2015 Hepatitis C Screening Completed 12/17/2023 , 06/08/2017, 11/28/2008 Pneumococcal vaccine 65+ Completed 12/26/2023 Medical Devices Implanted Type Area Cripple Chaser Device Identifier Shelf Expiration Date Model / Serial / Lot [employer] Swivelock C 4.75mm 19.1mm Closed Eyelet Vent [place] Suture Ar-2324bcc - [id number] Implanted:Qty: 1 on 06/15/2021 by Aldo Sampson MD at [facility] [employer] 02/24/2025 AR-2324BCC / / [id number] [employer] Ar-3633 Arthrex Fibertak Tape 3 Load Rotator Cuff [place] Suture Sterile Latex Free - [id number] Implanted:Qty: 1 on 06/15/2021 by Aldo Sampson MD at [facility] [employer] 02/24/2026 AR-3633 / / [id number] [facility] [employer] [facility] [id number] Healicoil Regenesorb Ultratape Ultrabraid 4.75mm Smooth 2 [place] - [id number] Implanted:Qty: 1 on 06/15/2021 by Aldo Sampson MD at [facility] [employer] 03/09/2023 [id number] / / [id number] [employer] Swivelock C 4.75mm 19.1mm Close Eyelet Tape Loop Vent [place] Ar-2324bcct - [id number] Implanted:Qty: 1 on 06/15/2021 by Aldo Sampson MD at [facility] [employer] 02/24/2025 AR-2324BCC T / / [id number] [employer] Swivelock C 4.75mm 19.1mm Closed Eyelet Vent [place] Suture Ar-2324bcc - [id number] Implanted:Qty: 1 on 06/15/2021 by Aldo Sampson MD at [facility] [employer] 10/25/2024 AR-2324BCC / / [id number] Exactech Equinoxe 4.5mm 30mm Kit Compression Lock Cap Reverse Shoulder 320-20-30 - [id number] - [id number] Implanted:Qty: 1 on 04/10/2022 by Aldo Sampson MD at [facility] Right: Shoulder [employer] [id number] 10/13/2026 320-20-30 / [id number] / [employer]ech Equinoxe 4.5mm 34mm Kit Compression Lock Cap Reverse Shoulder 320-2034 - [id number] - [id number] Implanted:Qty: 1 on 04/10/2022 by Aldo Sampson MD at [facility] Right: Shoulder [employer] [id number] 12/03/2024 320-20-34 / [id number] / Ex[employer]ech Equinoxe 40mm Small Reverse Shoulder +2.5mm Liner Humeral 320-40- - [id number] - [id number] Implanted:Qty: 1 on 04/10/2022 by Aldo Sampson MD at [facility] Right: Shoulder [employer] [id number] 09/19/2026 320-40- / [id number] / Exactech Equinoxe 7mm 70mm Stem Humeral Sterile 300-30-07 - [id number] - [id number] Implanted:Qty: 1 on 04/10/2022 by Aldo Sampson MD at [facility] Right: Shoulder [employer] [id number] 12/29/2031 300-30-07 / [id number] / Ex[employer]ech Equinoxe Reverse Shoulder +0mm Tray Humeral Adapter 32010 - [id number] - [id number] Implanted:Qty: 1 on 04/10/2022 by Aldo Sampson MD at [facility] Right: Shoulder [employer]ech [id number] 09/07/2031 320-10 / [id number] / Exactech Reverse Torque Define Shoulder Kit Screw 32020 - [id number] - [id number] Implanted:Qty: 1 on 04/10/2022 by Aldo Sampson MD at [facility] Right: Shoulder [employer]ech [id number] 12/26/2026 320-20- / [id number] / Exactech Equinoxe Lock Reverse Shoulder Glenosphere Screw Bone 320-15-05 - [id number] - [id number] Implanted:Qty: 1 on 04/10/2022 by Aldo Sampson MD at [facility] Right: Shoulder [employer]ech [id number] 01/09/2027 320-15-05 / [id number] / Exactech Equinoxe Small Reverse Posterior Augment Shoulder Right 8d Plate 320-35-04 - [id number] - [id number] Implanted:Qty: 1 on 04/10/2022 by Aldo Sampson MD at [facility] Right: Shoulder [employer]ech [id number] 09/13/2031 320-35-04 / [id number] / Exactech Equinoxe 40mm 24.3mm Small Reverse Shoulder Sphere Glenoid 320-31-40 - [id number] - [id number] Implanted:Qty: 1 on 04/10/2022 by Aldo Sampson MD at [facility] Right: Shoulder [employer]ech [id number] 01/22/2032 320-31-40 / [id number] / [employer] Graft Bone Filler Peptide Enhanced Syr I Factor 1cc Putty 700-010 - [id number] Implanted:Qty: 1 on 11/29/2023 by Anival Nelson MD PhD at [facility] N/A: Spine Cervical [employer] Inc [id number] 03/27/2026 700-010 / / [id number] [employer] Cage Spinal Cervical 14d X 16w X 7h 6 Degree [id number] - [id number] Implanted:Qty: 1 on 11/29/2023 by Anival Nelson MD PhD at [facility] N/A: Spine Cervical [employer] [id number] 07/28/2028 [id number] / / [id number] [employer] Maxan 8mm 1 Level Spine Plate Bone Green [id number] - [id number] Implanted:Qty: 1 on 11/29/2023 by Anival Nelson MD PhD at [facility] N/A: Spine Cervical [employer] [id number] / / [employer] Maxan 4mm 18mm Variable Angle Spine Screw Bone [id number] - [id number] Implanted:Qty: 4 on 11/29/2023 by Anival Nelson MD PhD at [facility] N/A: Spine Cervical [employer] [id number] / / Procedures Procedure Name Priority Date/Time Associated Diagnosis Comments MRI CERVICAL SPINE WO CONTRAST Schedule Routine, Read Routine (OP Routine) 10/19/2024 5:21 PM CDT Cervical disc disorder with myelopathy of mid-cervical region Spinal stenosis in cervical region MRI THORACIC SPINE WO CONTRAST Schedule Routine, Read Routine (OP Routine) 10/19/2024 5:21 PM CDT Cervical disc disorder with myelopathy of mid-cervical region Spinal stenosis in cervical region XR SPINE CERVICAL W FLEXION AND EXTENSION 6 OR MORE VIEWS Schedule Routine, Read Routine (OP Routine) 10/01/2024 8:25 AM CDT Cervical disc disorder with myelopathy of mid-cervical region Spinal stenosis in cervical region PSA SCREEN Routine 06/09/2024 1:23 PM CDT Prostate cancer screening HEPATITIS C ANTIBODY Routine 12/17/2023 8:05 PM CDT COLONOSCOPY 02/03/2019 12:08 PM COMMERCIAL DRONE PILOT from Last 3 Months or Most Recently Relevant to Health Maintenance Results * MRI Cervical Spine WO Contrast (10/19/2024 5:21 PM CDT) Anatomical Region Laterality Modality Spine N/A Magnetic Resonan ce 10/20/2024 1:05 PM CDT Narrative 10/20/2024 1:19 PM CDT EXAM DESCRIPTION: MRI CERVICAL SPINE WO CONTRAST REASON FOR STUDY: Neck pain, chronic, Neck pain, infection suspected, positive xray/CT Pt has a history of 2 cervical surgeries in 24' from a blood clot; he's currently experiencing shooting pain from his waist down to his knees and neuropathy in his lower legs and feet within the past few months TECHNIQUE: Sagittal and Axial imaging includes T1, T2, STIR and gradient echo sequences. COMPARISON: Comparison cervical plain films 10/01/2024 and prior MRI 10/16/2023 10/16/2023. FINDINGS: ALIGNMENT: Stable mild straightening of cervical lordosis. VERTEBRAE: Interval interbody fusion of C4-5 with stable posterior decompressive laminectomies at C4, C5, and C7 levels. No acute osseous abnormality. Artifact related to the anterior fusion hardware at C4-5. DISCS: Disc degeneration at several levels. See below. HARDWARE: Interbody fusion at C4-5 better seen on plain films CORD: Tiny foci of T2 hyperintensity again seen in the cervical cord at C4-5 and C6-7 suggesting tiny foci of encephalomalacia. No new cord signal alteration or atrophy. INDIVIDUAL LEVELS: C1-C2: No significant spinal stenosis. C2-C3: No significant spinal stenosis or neural foraminal stenosis. C3-C4: Broad-based posterior disc osteophytic complex. Uncovertebral spurring bilaterally. Moderate to significant right and eegb-sd-lxvwkeok left foraminal narrowing. Mild effacement of anterior CSF without posterior CSF effacement. C4-C5: Not well seen on axial images due to hardware artifact. On sagittal images, no central canal stenosis. No foraminal stenosis. C5-C6: Mild posterior disc osteophytic complex. No definite central canal stenosis. Probable mild foraminal narrowing due to uncovertebral spurs. C6-C7: Bulky left paracentral disc osteophytic complex. Severe left foraminal stenosis. No central canal stenosis or right foraminal narrowing. C7-T1: No significant spinal stenosis or neural foraminal stenosis. BASE OF BRAIN: No significant finding. UPPER THORACIC: Incompletely imaged. No significant spinal stenosis or foraminal stenosis. OTHER: No other significant finding. IMPRESSION: 1. Interval interbody fusion of C4-5 with posterior decompressive laminectomies at C4, C5 and C7 levels. 2. Multilevel cervical spondylosis with foraminal narrowing most evident on the right at C3-4 and on the left at C6-7. Please correlate with radiculopathy symptoms. 3. Tiny foci of T2 hyperintensity in the cervical cord at C4-5 and C6-7 in keeping with likely tiny foci of myelomalacia. No new or acute abnormality. THIS IS AN ELECTRONICALLY VERIFIED FINAL REPORT 10/20/2024 1:19 PM - Electronically signed by Jono Mccarty M.D. LC: FRANK Report ID: [id number] Reading Location: [id number] Procedure Note Enedina Mccarty MD - 10/20/2024 EXAM DESCRIPTION: MRI CERVICAL SPINE WO CONTRAST REASON FOR STUDY: Neck pain, chronic, Neck pain, infection suspected, positive xray/CT Pt has a history of 2 cervical surgeries in 24' from a blood clot; he's currently experiencing shooting pain from his waist down to his knees and neuropathy in his lower legs and feet within the past few months TECHNIQUE: Sagittal and Axial imaging includes T1, T2, STIR and gradientecho sequences. COMPARISON: Comparison cervical plain films 10/01/2024 and prior MRI 10/16/2023 10/16/2023. FINDINGS: ALIGNMENT: Stable mild straightening of cervical lordosis. VERTEBRAE: Interval interbody fusion of C4-5 with stable posterior decompressive laminectomies at C4, C5, and C7 levels. No acute osseous abnormality. Artifact related to the anterior fusion hardware at C4-5. DISCS: Disc degeneration at several levels. See below. HARDWARE: Interbody fusion at C4-5 better seen on plain films CORD: Tiny foci of T2 hyperintensity again seen in the cervical cord atC4-5 and C6-7 suggesting tiny foci of encephalomalacia. No new cord signal alteration or atrophy. INDIVIDUAL LEVELS: C1-C2: No significant spinal stenosis. C2-C3: No significant spinal stenosis or neural foraminal stenosis. C3-C4: Broad-based posterior disc osteophytic complex. Uncovertebral spurring bilaterally. Moderate to significant right and uzme-ge-oynanjepmzdc foraminal narrowing. Mild effacement of anterior CSF without posteriorCSF effacement. C4-C5: Not well seen on axial images due to hardware artifact. Onsagittal images, no central canal stenosis. No foraminal stenosis. C5-C6: Mild posterior disc osteophytic complex. No definite centralcanal stenosis. Probable mild foraminal narrowing due to uncovertebral spurs. C6-C7: Bulky left paracentral disc osteophytic complex. Severe left foraminal stenosis. No central canal stenosis or right foraminalnarrowing. C7-T1: No significant spinal stenosis or neural foraminal stenosis. BASE OF BRAIN: No significant finding. UPPER THORACIC: Incompletely imaged. No significant spinal stenosis or foraminal stenosis. OTHER: No other significant finding. IMPRESSION: 1. Interval interbody fusion of C4-5 with posterior decompressive laminectomies at C4, C5 and C7 levels. 2. Multilevel cervical spondylosis with foraminal narrowing most evidenton the right at C3-4 and on the left at C6-7. Please correlate withradiculopathy symptoms. 3. Tiny foci of T2 hyperintensity in the cervical cord at C4-5 and C6-7in keeping with likely tiny foci of myelomalacia. No new or acuteabnormality. THIS IS AN ELECTRONICALLY VERIFIED FINAL REPORT 10/20/2024 1:19 PM - Electronically signed by Jono Mccarty M.D. LC: FRANK Report ID: [id number] Reading Location: [place] [id number] us Anival Nelson MD PhD IMG MRI PROCEDURES Final Result * MRI Thoracic Spine WO Contrast (10/19/2024 5:21 PM CDT) Anatomical Region Laterality Modality Spine N/A Magnetic Resonan ce 10/20/2024 12:4 4 PM CDT Narrative 10/20/2024 1:05 PM CDT EXAM DESCRIPTION: MRI THORACIC SPINE WO CONTRAST REASON FOR STUDY: Myelopathy, chronic, thoracic spine Pt has a history of 2 cervical surgeries in 24' from a blood clot; he's currently experiencing shooting pain from his waist down to his knees and neuropathy in his lower legs and feet within the past few months TECHNIQUE: Sagittal and Axial imaging includes T1, T2, STIR and gradient echo sequences. COMPARISON: Comparison is dated 10/16/2023. FINDINGS: ALIGNMENT: Slight degenerative retrolisthesis of T7 on T8 and T6 on T7. Changes are stable. VERTEBRAE: No acute fracture is identified. There is increasing marrow edema in endplates of T7 and T8 due to increasing disc degeneration. These are new from prior. Marrow signal otherwise unremarkable. Multilevel chronic Schmorl's nodes at other levels. HARDWARE: None in the spine. CORD: Normal in size and signal intensity. THORACIC DISCS T1-T12: Disc degeneration at T6-7 with broad-based left paramidline protrusion mild broad-based posterior disc osteophytic changes at T7-8, T8-9 and T11-12. Mild progression since previous. No compressive disc herniation. SOFT TISSUES: No soft tissue masses. LOWER CERVICAL: Incompletely imaged. No significant spinal stenosis or neuroforaminal stenosis. UPPER LUMBAR: Incompletely imaged. No significant spinal or neuroforaminal stenosis. OTHER: No other significant abnormality. IMPRESSION: 1. No acute osseous abnormality. 2. Increasing disc degeneration at T7-8 with increasing marrow edema in the endplates. Stable chronic broad-based disc osteophytic changes at T6-7 with slight effacement along left anterior thecal sac CSF. No compressive disc herniation or significant spinal stenosis at any level. 3. No cord signal abnormality. THIS IS AN ELECTRONICALLY VERIFIED FINAL REPORT 10/20/2024 1:05 PM - Electronically signed by Jono Mccarty M.D. LC: FRANK Report ID: [id number] Reading Location: [id number] Procedure Note Enedina Mccarty MD - 10/20/2024 EXAM DESCRIPTION: MRI THORACIC SPINE WO CONTRAST REASON FOR STUDY: Myelopathy, chronic, thoracic spine Pt has a history of 2 cervical surgeries in ' from a blood clot; he's currently experiencing shooting pain from his waist down to his knees and neuropathy in his lower legs and feet within the past few months TECHNIQUE: Sagittal and Axial imaging includes T1, T2, STIR and gradientecho sequences. COMPARISON: Comparison is dated 10/16/2023. FINDINGS: ALIGNMENT: Slight degenerative retrolisthesis of T7 on T8 and T6 on T7. Changes are stable. VERTEBRAE: No acute fracture is identified. There is increasing marrow edema in endplates of T7 and T8 due to increasing disc degeneration.These are new from prior. Marrow signal otherwise unremarkable. Multilevelchronic Schmorl's nodes at other levels. HARDWARE: None in the spine. CORD: Normal in size and signal intensity. THORACIC DISCS T1-T12: Disc degeneration at T6-7 with broad-based left paramidline protrusion mild broad-based posterior disc osteophytic changesat T7-8, T8-9 and T11-12. Mild progression since previous. No compressivedisc herniation. SOFT TISSUES: No soft tissue masses. LOWER CERVICAL: Incompletely imaged. No significant spinal stenosis or neuroforaminal stenosis. UPPER LUMBAR: Incompletely imaged. No significant spinal orneuroforaminal stenosis. OTHER: No other significant abnormality. IMPRESSION: 1. No acute osseous abnormality. 2. Increasing disc degeneration at T7-8 with increasing marrow edema inthe endplates. Stable chronic broad-based disc osteophytic changes at T6-7with slight effacement along left anterior thecal sac CSF. No compressive disc herniation or significant spinal stenosis at any level. 3. No cord signal abnormality. THIS IS AN ELECTRONICALLY VERIFIED FINAL REPORT 10/20/2024 1:05 PM - Electronically signed by Jono Mccarty M.D. LC: FRANK Report ID: [id number] Reading Location: [place] [id number] Anival Nelson MD PhD IMG MRI PROCEDURES Final Result * XR Spine Cervical W Flexion And Extension 6 or More Views (10/01/2024 8:25 AM CDT) Anatomical Region Laterality Modality Spine N/A Computed Radiogr aphy 10/01/2024 8:54 AM CDT Impressions 10/01/2024 8:54 AM CDT 1. Unchanged C4-C5 anterior cervical discectomy and fusion. 2. Multilevel degenerative disc disease in the cervical spine, most pronounced and moderate at C6-C7. 3. Multilevel facet and intervertebral joint arthropathy with varying degrees of osseous bilateral neural foraminal stenosis. Electronically signed by: Rehan Botello M.D. Narrative 10/01/2024 8:54 AM CDT EXAMINATION: XR SPINE CERVICAL W FLEXION AND EXTENSION 6 OR MORE VIEWS HISTORY: 1yr cervical post op COMPARISON: 06/18/2024 FINDINGS: Unchanged C4-C5 anterior cervical discectomy and fusion. Instrumentation is intact. No significant prevertebral soft tissue swelling. No angular excursion at the fused segments. Multilevel facet and uncovertebral joint arthropathy with osseous neural foraminal narrowing, most pronounced bilaterally at C3-C4 and on the left at C4-C5. No significant spondylolisthesis. Multilevel degenerative disc disease, most pronounced and moderate at C6-C7. 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 Procedure Note Rehan Botello MD - 10/01/2024 EXAMINATION: XR SPINE CERVICAL W FLEXION AND EXTENSION 6 OR MORE VIEWS HISTORY: 1yr cervical post op COMPARISON: 06/18/2024 FINDINGS: Unchanged C4-C5 anterior cervical discectomy and fusion. Instrumentation is intact. No significant prevertebral soft tissue swelling. No angular excursion at the fused segments. Multilevel facet and uncovertebral joint arthropathy with osseous neural foraminal narrowing, most pronounced bilaterally at C3-C4 and on the left at C4-C5. No significant spondylolisthesis. Multilevel degenerative disc disease, most pronounced and moderate at C6-C7. 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 IMPRESSION: 1. Unchanged C4-C5 anterior cervical discectomy and fusion. 2. Multilevel degenerative disc disease in the cervical spine, most pronounced and moderate at C6-C7. 3. Multilevel facet and intervertebral joint arthropathy with varying degrees of osseous bilateral neural foraminal stenosis. Electronically signed by: Rehan Botello M.D. Anival Nelson MD PhD IMG XR PROCEDURES Final R esult * PSA screen (06/09/2024 1:23 PM CDT) PSA-Total 0.84 <=5.40 ng/mL Comment: Interpretive Data AGE SEX REFERENCE INTERVAL 0 minutes-150 years Female None 0 minutes-49 years Male None 50-59 years Male 0-3.90 60-69 years Male 0-5.40 70-79 years Male 0-6.20 80-150 years Male 0-6.20 The Bradly PSA Total assay procedure was used. Results from different manufacturers or methods may not be comparable. Serial testing should be performed using the same method. Current interpretive data last revised 21. Testing performed by: [facility], [address] [place] [address], [place] [address] Blood 06/09/2024 1:23 PM CDT 06/09/2024 5:52 PM CDT us Nickie Bernal [employer]ICAL OFFICER LAB BLOOD ORDERABLES Final Re sult [facility] ([place]) [facility] Department [place] [address] * Hepatitis C antibody Blood (12/17/2023 8:05 PM CDT) Hep C Ab Nonreactive Nonreactive Comment:Antibodies to HCV no t detected. Does NOT exclude the possibility of recent exposure to HCV. Current interpretive data was last revised on 21 Blood 12/17/2023 8:05 PM CDT 12/17/2023 8:17 PM CDT us Anival Nelson MD PhD LAB MICROBIOLOGY - GENERA L ORDERABLES Final Result Performing Organization Address City/[facility]/ZIP Co de Phone Number [facility] [place] [address] * COLONOSCOPY (02/03/2019 12:08 PM COMMER[employer]ONE PILOT) Anatomical Region Laterality Modality Other Narrative Procedure Note Holli Avery MD - 02/03/2019 12:08 PM CST [facility] Patient Name: Abimael Stringer Procedure Date: 02/03/2019 12:08PM Date of : 1960 Admit Type: Outpatient Age: 59 Gender: Male Attending MD: Holli Avery M.D. Room: [facility] ENDOSCOPY ROOM 1 Note Status: Finalized Patient Profile: This is a 59 year old male. No family history ofcolon cancer. Screening. Procedure: Colonoscopy Indications: Screening for colorectal malignant neoplasm, Last colonoscopy: 2006 Referring MD: Bryon Real M.D. Providers: Holli Avery M.D. Impression: - The entire examined colon is normal. - No specimens collected. Recommendation: - Discharge patient to home. - Continue present medications. - Repeat colonoscopy in 10 years for screeningpurposes. Medicines: Monitored Anesthesia Care Complications: No immediate complications. Estimated Blood Loss: Estimated blood loss: none. Procedure: Pre-Anesthesia Assessment: - Prior to the procedure, a History and Physical was performed, and patient medications and allergieswere reviewed. The patient's tolerance of previous anesthesia was also reviewed. The risks and benefitsof the procedure and the sedation options and riskswere discussed with the patient. All questions were answered, and informed consent was obtained. Prior Anticoagulants: The patient has taken no previous anticoagulant or antiplatelet agents. ASA Grade Assessment: II - A patient with mild systemicdisease. After reviewing the risks and benefits, the patientwas deemed in satisfactory condition to undergo the procedure. The benefits, risks and alternatives of theprocedure and sedation were discussed and informed consent was obtained. All questions were answered. Please referto the signed informed consent document in the medical record. The bowel preparation used was bisacodyl tablets. Bowel prep was administered using a split dose. The bowel preparation used was Miralax. Thescope was passed under direct vision. The Pediatric Colonoscope PCF-H190L [id number] was introducedthrough the anus and advanced to the the cecum, identifiedby appendiceal orifice and ileocecal valve. The qualityof the bowel preparation was excellent. Findings: The perianal and digital rectal examinations were normal. The cecum appeared normal. The colon (entire examined portion) appeared normal. No polyps and no mass lesions noted. The rectum appeared normal. Electronically signed by Holli Avery M.D. Holli Avery M.D. 02/03/2019 2:07:54 PM Number of Addenda: 0 Note Initiated On: 02/03/2019 12:08 PM Procedure Code(s): --- Professional --- 20731, Colonoscopy, flexible; diagnostic, including collection of specimen(s) by brushing or washing, when performed (separateprocedure) Diagnosis Code(s): --- Professional --- Z12.11, Encounter for screening for malignant neoplasm of colon CPT copyright 2017 [employer]. All rights reserved. The codes documented in this report are preliminary and upon professor of violin reviewmay be revised to meet current compliance requirements. Recognized by the [employer] for promoting quality in endoscopy Holli Avery MD ENDOSCOPY PROCEDURES Final Result from Last 3 Months or Most Recently Relevant to Health Maintenance Insurance [employer] Advance Directives For more information, please contact: [phone] * Full Code (Latest Code Status on File) Date Activated Date Inactivated Comments 11/30/2023 12:25 AM 12/21/2023 6:03 PM * Full Code Date Activated Date Inactivated Comments 05/19/2023 7:27 PM 05/24/2023 9:25 PM * Full Code Date Activated Date Inactivated Comments 04/10/2022 11:01 AM 04/10/2022 6:18 PM * Full Code Date Activated Date Inactivated Comments 03/21/2020 1:00 PM 03/21/2020 5:46 PM * Full Code Date Activated Date Inactivated Comments 03/21/2020 11:23 AM 03/21/2020 1:00 PM Care Teams Welder 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
== END 2024-11-09 14:17 | disposition home or self-care (01) ==
PROVIDERS: Emergency Provider Nurse Practitioner Family; PCP Family Medicine
DX: S90.31XA Contusion of right foot, initial encounter (principal); W22.8XXA Striking against or struck by other objects, initial encounter; F12.90 Cannabis use, unspecified, uncomplicated; I10 Essential (primary) hypertension; G62.9 Polyneuropathy, unspecified; M48.061 Spinal stenosis, lumbar region without neurogenic claudication; E78.00 Pure hypercholesterolemia, unspecified; Z86.73 Personal history of transient ischemic attack (TIA), and cerebral infarction without residual deficits
CPT/HCPCS: 73630; 99213; G0463